=== PATIENT | female | born 1980 | race Caucasian/White ===

== ENCOUNTER → 2017-06-12 | Outpatient (CLI) | payer BC ==
--- NOTE | 2017-06-12 15:36 | NM ---
EXAMINATION TYPE: NM hepatobiliary w EF DATE OF EXAM: 06/12/2017 COMPARISON: NONE HISTORY: 37 year-old female with pain, evaluate for acute cholecystitis TECHNIQUE: After the intravenous administration of 5.38 mCi Tc 99m Mebrofenin hepatobiliary scintigra phy is performed. Immediate images post injection. FINDINGS: There is satisfactory initial accumulation of tracer by the liver. The gallbladder is visualized wit hin 18 minutes. The small bowel activity is noted within 18 minutes. At one hour 8 ounces of oral e nsure plus is given to mimic CCK and gallbladder ejection fraction is calculated at 28%. IMPRESSION: Diminished gallbladder ejection fraction. Differential considerations include chronic cholecystitis a nd biliary dyskinesia. Ultrasound could help in differentiating.
== END ==
LOC: RADNMMAIN 12:47
PROVIDERS: ATTEND Family Medicine
DX: K81.0 Acute cholecystitis (principal)
CPT/HCPCS: 78226; A9537

== ENCOUNTER 2017-07-05 08:31 | Day surgery (SDC) | payer BC ==
[2017-07-05] MEDS ORDERED: LIDOCAINE 1% 20 ML VIAL (10MG/ML) FOR IV START INTRADERMA ONE (08:42)
[2017-07-05 08:51] VITALS: RESP 16
[2017-07-05] MEDS ORDERED: DEXAMETHASONE SOD PHOSPHATE 10 MG/ML 1 ML VIAL IV ONE (09:01)
[2017-07-05] MEDS ORDERED: MIDAZOLAM 2 MG/2 ML VIAL IV PRN (09:01)
[2017-07-05] MEDS ORDERED: SCOPOLAMINE 1.5MG/72HR PATCH TRANSDERM ONE (09:01)
[2017-07-05] MEDS ORDERED: LIDOCAINE 1% 20 ML VIAL (10MG/ML) FOR IV START INTRADERMA PRN (09:01)
[2017-07-05] MEDS: ONDANSETRON 4 MG/2 ML VIAL IVP ONE ×2 (09:07→11:41)
[2017-07-05] MEDS: LACTATED RINGERS 1,000 ML IV SCH ×2 (09:08→13:26)
--- NOTE | 2017-07-05 09:54 | P.GSHP ---
History of Present Illness H&P Date: 07/05/17 Chief Complaint: Right upper quadrant pain 37-year-old female who's had complaints of abdominal pain. Patient had a recent HIDA scan shows abnormal ejection fraction. She presents today for laparoscopic cholecystectomy. - Constitutional Constitutional: Reports as per HPI Medications and Allergies Home Medications Medication Instructions Recorded Confirmed Type Elinest ( Control) 1 tab PO DAILY 07/05/17 History Allergies Allergy/AdvReac Type Severity Reaction Status Date / Time No Known Allergies Allergy Verified 07/05/17 08:38 Surgical - Exam Vital Signs Temp Pulse Resp BP Pulse Ox 97.4 F L 68 16 114/79 99 07/05/17 08:49 07/05/17 08:49 07/05/17 08:49 07/05/17 08:49 07/05/17 08:49 - General well developed, no distress - Eyes PERRL - ENT normal pinna - Neck no masses - Respiratory normal expansion - Cardiovascular Rhythm: regular - Abdomen Abdomen: soft, non tender Assessment and Plan Plan: Chronic cholecystitis. We'll perform laparoscopic cholecystectomy.
[2017-07-05] MEDS ORDERED: HEPARIN SODIUM,PORCINE 5,000 UNIT/ML 1 ML VIAL SQ ONE (10:01)
[2017-07-05] MEDS ORDERED: NEOSTIGMINE 1 MG/ML 10 ML VIAL ONE (10:13)
[2017-07-05] MEDS ORDERED: fentaNYL (PF) 50 MCG/ML 2 ML AMP ONE (10:13)
[2017-07-05] MEDS ORDERED: SUCCINYLCHOLINE CHLORIDE 100 MG/5 ML SYR IV ONE (10:13)
[2017-07-05] MEDS ORDERED: MIDAZOLAM 2 MG/2 ML VIAL ONE (10:13)
[2017-07-05] MEDS ORDERED: LIDOCAINE 1% INJ 10MG/ML (20 ML MDV) ONE (10:13)
[2017-07-05] MEDS ORDERED: SODIUM CHLORIDE 0.9% 50 ML with ceFAZolin 2,000 MG IV ONE ×2 (10:13)
[2017-07-05] MEDS ORDERED: GLYCOPYRROLATE 0.2 MG/ML 2 ML VIAL ONE (10:13)
[2017-07-05] MEDS ORDERED: ROCURONIUM BROMIDE 10 MG/ML 10 ML VIAL IV ONE (10:13)
[2017-07-05] MEDS ORDERED: PROPOFOL 10 MG/ML 20 ML VIAL IV ONE (10:13)
[2017-07-05] MEDS ORDERED: BUPIVACAIN-EPI 0.5%-1:200,000 30 ML VIAL SQ ONE (10:42)
[2017-07-05] MEDS ORDERED: LACTATED RINGERS 1,000 ML IV ONE (10:57)
--- NOTE | 2017-07-05 10:59 | P.OP ---
Date of Procedure: 07/05/17 Preoperative Diagnosis: Cholecystitis Postoperative Diagnosis: Cholecystitis Procedure(s) Performed: Laparoscopic cholecystectomy Implants: Anesthesia: LOAN Surgeon: Neil Beasley Estimated Blood Loss (ml): 5 Pathology: other (Reba Bladder) Condition: stable Disposition: PACU Indications for Procedure: Operative Findings: Description of Procedure: The patient was placed on the operating table. The patient received a general endotracheal tube anesthesia. The patients abdomen was prepped and draped in the usual sterile fashion. Through an infraumbilical stab incision, the fascia of the anterior abdominal wall was grasped with a pair of Kochers and then the Veress needle was placed in the peritoneal cavity. Position of the Veress needle was confirmed with positive drop test. The abdomen was then insufflated. After adequate insufflation, the 10 mm trocar was placed in the peritoneal cavity. Following this the laparoscope was placed in the peritoneal cavity. The patient was placed in the head-up, right side up position and then a 5 mm trocar was placed in the right lateral and right subcostal position under direct visualization. A 8 mm trocar was placed in the epigastric position. The gallbladder was grasped in the fundus and infundibulum. Traction on the gallbladder was placed in the lateral and the cephalad positions. The triangle of Calot was visualized.. The cystic duct was bluntly dissected until the union of the cystic duct and common bile duct was seen. The cystic duct was then divided and sealed with the Harmonic scissors. A PDS Endoloop was then placed throughout the cystic duct stump. The cystic artery divided and sealed with the Harmonic scissors. The gallbladder was then removed from the liver bed using Harmonic scissors. The gallbladder was then extracted through the epigastric port site. Operative field was checked for any bleeding spots and Harmonic scissors was used to coagulate the liver bed. The abdomen was irrigated. The trocars were removed. The skin was closed using interrupted 3-0 Vicryl suture. Dermabond dressing were applied. The patient tolerated the procedure well.
[2017-07-05] MEDS: HYDROmorphone 1 MG/ML 1 ML SYRINGE IVP PRN ×2 (11:10→11:15)
[2017-07-05] MEDS ORDERED: KETOROLAC 30 MG/ML 1 ML VIAL IVP ONE (11:15)
[2017-07-05 11:24] VITALS: TEMP 96.8
[2017-07-05] MEDS ORDERED: diphenhydrAMINE 50 MG/ML 1 ML VIAL IVP ONE (11:30)
[2017-07-05] MEDS ORDERED: METOCLOPRAMIDE 5 MG/ML 2 ML VIAL IVP ONE (11:46)
[2017-07-05] MEDS ORDERED: HYDROcodone/APAP 7.5-325MG 1 EACH TAB PO ONE (14:10)
[2017-07-05 14:36] VITALS: BP 135/85; PULSE 94
== END 2017-07-05 15:40 | disposition home or self-care (01) ==
LOC: OR 08:31
PROVIDERS: ATTEND Surgery
DX: K81.1 Chronic cholecystitis (principal); Z79.3 Long term (current) use of hormonal contraceptives
CPT/HCPCS: 47562; 81025; 88304; J2250; J1200; J1644; J1100; J2710; J2765; J2405; J2001; J3010; J1885; J1170; J0690; J0330; J2704

== ENCOUNTER → 2018-01-10 | Outpatient (CLI) | payer BC ==
--- NOTE | 2018-01-13 11:26 | MM ---
Reason for exam: screening (asymptomatic). Last mammogram was performed 1 year and 7 months ago. History: Taking hormonal contraceptives for 7 years beginning at age 30. Physical Findings: A clinical breast exam by your physician is recommended on an annual basis and results should be correlated with mammographic findings. MG Screening Mammo w CAD Bilateral CC and MLO view(s) were taken. Prior study comparison: June 04, 2016, mammogram. The breast tissue is heterogeneously dense. This may lower the sensitivity of mammography. No suspicious abnormality. No significant changes when compared with prior studies. ASSESSMENT: Negative, BI-RAD 1 RECOMMENDATION: Routine screening mammogram of both breasts in 1 year.
== END | disposition home or self-care (01) ==
LOC: RADMAMWWP 11:03
PROVIDERS: ATTEND Family Medicine
DX: Z12.31 Encounter for screening mammogram for malignant neoplasm of breast (principal)
CPT/HCPCS: 77067

== ENCOUNTER → 2020-09-02 | Outpatient (CLI) | payer BC ==
--- NOTE | 2020-09-05 11:10 | MM ---
Reason for exam: screening (asymptomatic). Last mammogram was performed 2 years and 8 months ago. History: Taking hormonal contraceptives for 7 years beginning at age 30. Physical Findings: A clinical breast exam by your physician is recommended on an annual basis and results should be correlated with mammographic findings. MG Screening Mammo w CAD Bilateral CC and MLO view(s) were taken. Prior study comparison: January 10, 2018, bilateral MG screening mammo w CAD. June 04, 2016, mammogram. The breast tissue is heterogeneously dense. This may lower the sensitivity of mammography. There is no discrete abnormality. No significant changes when compared with prior studies. ASSESSMENT: Negative, BI-RAD 1 RECOMMENDATION: Routine screening mammogram of both breasts in 1 year.
== END | disposition home or self-care (01) ==
LOC: RADMAMWWP 09:52
PROVIDERS: ATTEND Family Medicine
DX: Z12.31 Encounter for screening mammogram for malignant neoplasm of breast (principal)
CPT/HCPCS: 77067

== ENCOUNTER 2021-06-25 12:04 | Emergency (ER) | payer BC ==
[2021-06-25 12:16] VITALS: BP 114/80; PULSE 67; RESP 18; TEMP 98
--- NOTE | 2021-06-25 13:08 | ED ---
General Adult HPI - General Chief complaint: Skin/Abscess/Foreign Body Stated complaint: abscess in mouth Time Seen by Provider: 06/25/21 12:18 Source: patient Mode of arrival: ambulatory Limitations: no limitations - History of Present Illness Initial comments: 41-year-old female presents to the emergency room for a chief complaint of irritation below the lip. Patient states she has had irritation below her lower lip for at least 2 months now. States that she was at her doctor's but forgot to tell them. Patient states that it is not painful but just irritating. She states she has tried honey on it as well as Vaseline and it does not seem to be getting better. Denies any flaking of it. Denies any new face lotion as or products. Denies rashes elsewhere.Patient has no other complaints at this time including shortness of breath, chest pain, abdominal pain, nausea or vomiting, headache, or visual changes. - Related Data Home Medications Medication Instructions Recorded Confirmed Elinest ( Control) 1 tab PO DAILY 07/05/17 Previous Rx's Medication Instructions Recorded Docusate [Colace] 100 mg PO BID #20 capsule 07/05/17 HYDROcodone/APAP 7.5-325MG [Oracle 1 each PO Q4H PRN #60 tab 07/05/17 7.5] Hydrocortisone Cream 1 applic TOPICAL BID 5 Days #10 gm 06/25/21 [Hydrocortisone 1% Cream] Allergies Allergy/AdvReac Type Severity Reaction Status Date / Time No Known Allergies Allergy Verified 06/25/21 12:15 Review of Systems ROS Statement: Those systems with pertinent positive or pertinent negative responses have been documented in the HPI. ROS Other: All systems not noted in ROS Statement are negative. Past Medical History Past Medical History: No Reported History History of Any Multi-Drug Resistant Organisms: None Reported Past Surgical History: Cholecystectomy Past Psychological History: No Psychological Hx Reported Smoking Status: Never smoker Past Alcohol Use History: Occasional Past Drug Use History: None Reported General Exam Limitations: no limitations General appearance: alert, in no apparent distress Head exam: Present: atraumatic Eye exam: Present: normal appearance, PERRL, EOMI. Absent: scleral icterus ENT exam: Present: mucous membranes moist. Absent: normal oropharynx (small erythematous raised skin changes below the lower lip) Neck exam: Present: normal inspection, full ROM. Absent: tenderness Respiratory exam: Present: normal lung sounds bilaterally. Absent: respiratory distress, wheezes Cardiovascular Exam: Present: regular rate, normal rhythm, normal heart sounds Course Vital Signs 06/25/21 12:12 Temperature 98 F Pulse Rate 67 Respiratory 18 Rate Blood Pressure 114/80 O2 Sat by Pulse 95 Oximetry Medical Decision Making - Medical Decision Making We will try a steroid cream on the area. This appears to be a dermatitis. Patient will need to see her primary care doctor and a aeronautical engineer. She will return for any worsening Disposition Clinical Impression: Dermatitis Disposition: HOME SELF-CARE Condition: Good Additional Instructions: Use medication as directed. Follow-up with primary care and dermatology. Return to the emergency room for any worsening symptoms. Prescriptions: Hydrocortisone Cream [Hydrocortisone 1% Cream] 1 applic TOPICAL BID 5 Days #10 gm Is patient prescribed a controlled substance at d/c from ED?: No Referrals: Bernard Hernandez DO [Primary Care Provider] - 1-2 days Everardo Perdue MD [STAFF PHYSICIAN] - 1-2 days Azeem Maciel MD [REFERRING] - 1-2 days Time of Disposition: 13:06
== END 2021-06-25 13:32 | disposition home or self-care (01) ==
LOC: EC 12:04
DX: L30.9 Dermatitis, unspecified (principal)
CPT/HCPCS: 99282

== ENCOUNTER → 2021-08-14 | Outpatient (CLI) | payer BC ==
--- NOTE | 2021-08-15 09:01 | CT ---
EXAMINATION TYPE: CT abdomen pelvis w con DATE OF EXAM: 08/14/2021 COMPARISON: None HISTORY: Acute diverticulitis, Abnormal LFTs. CT DLP: 575.90 mGycm Automated exposure control for dose reduction was used. TECHNIQUE: Helical acquisition of images from the lung bases through the pelvis have been completed. CONTRAST: Performed with Oral Contrast and with IV Contrast, patient injected with 100 mL of Isovue 300. FINDINGS: LUNG BASES: No significant abnormality is appreciated. AORTA: No significant abnormality is appreciated. LIVER/GB: There are masses within the liver, increased density on arterial phase imaging with blendin g of the density of these masses on delayed images to more homogenous liver appearance. Within the me dial segment of the left lobe there is a mass measuring 5.6 cm, central low attenuation is present, s maller lesion in the posterior right lobe towards the dome measures 4.7 cm, the largest lesion, also showing central low attenuation on early imaging measures 8.3 cm at the level of the dome towards the inferior vena cava. Additional focus of low-attenuation is present on axial image 22 posterior aspec t of the right lobe liver which is indeterminate. The liver is enlarged. PANCREAS: No significant abnormality is seen. SPLEEN: No significant abnormality is seen. ADRENALS: No significant abnormality is seen. KIDNEYS: No significant abnormality is seen. REPRODUCTIVE ORGANS: No significant abnormality is seen BOWEL: At the level of the cecum and ascending colon there is some questionable wall thickening lina g the colon, coronal image #24, axial image 58, retained fecal debris is present throughout the distr ibution of the colon. FREE AIR: No Free Air visible. ASCITES: None visible. PELVIC ADENOPATHY: None visualized. RETROPERITONEAL ADENOPATHY: No Retroperitoneal Adenopathy visible. URINARY BLADDER: No significant abnormality is seen. OSSEOUS STRUCTURES: Some sclerotic foci are present in the posterior ilium bilaterally, right techne tium which may represent bone islands but are indeterminate. There is a lucency present in the sulky driver ior aspect of the sacrum, sagittal image 55. IMPRESSION: FINDINGS FELT LIKELY TO REPRESENT FOCAL NODULAR HYPERPLASIA WITHIN THE LIVER. FOLLOW-UP COULD BE PERF ORMED TO ASSESS FOR STABILITY. Indeterminate wall thickening along the right colon, if bowel surveill ance has not been performed then follow-up or consideration for direct visualization may be undertake n. Indeterminate bone lesions, bone scan may be of benefit.
== END | disposition home or self-care (01) ==
LOC: RADCTMAIN 17:28
PROVIDERS: ATTEND Family Medicine
DX: K76.89 Other specified diseases of liver (principal)
CPT/HCPCS: 74177; Q9967

== ENCOUNTER 2021-09-01 07:12 | Day surgery (SDC) | payer BC ==
[2021-08-29 15:51] VITALS: BMI 24.2
[~2021-09-01 07:12] MED LIST: LACTATED RINGERS 1,000 ML IV SCH; LIDOCAINE 1% (10MG/ML) FOR IV START INTRADERMA PRN
[2021-09-01 07:53] VITALS: TEMP 96.9
[2021-09-01] MEDS ORDERED: PROPOFOL 10 MG/ML 20 ML VIAL IV ONE (08:02)
[2021-09-01] MEDS ORDERED: LIDOCAINE 1% INJ 10MG/ML (20 ML MDV) ONE (08:02)
--- NOTE | 2021-09-01 08:05 | P.HPIHPCON ---
History of Present Illness H&P Date: 09/01/21 41-year-old female presents today for colonoscopy. On recent CT of the abdomen and pelvis, she was found to have thickening of the right colon. She denies any blood in her stool. States that she has had recent diarrhea. Previous surgery includes cholecystectomy. Denies any family history of colon cancer. Consent for Procedure: I have explained the operation/procedure to the patient, including the risks, benefits, side effects, alternative therapies (including not receiving the proposed treatment or service), the likelihood of the patient achieving his/her goals, and potential recuperation problems for the procedure/sedation/analgesia, as well as any blood products, if indicated. I also explained to the patient the risks, benefits and side effects of the alternatives, as well as the risks related to not receiving the proposed procedure, care, treatment, or services. - Review of Systems All systems: negative Past Medical History Past Medical History: No Reported History Additional Past Medical History / Comment(s): States thick lining of large intestine from her CAT scan. States having abd. pain with higher enzymes. History of Any Multi-Drug Resistant Organisms: None Reported Past Surgical History: Cholecystectomy Additional Past Surgical History / Comment(s): Leap procedure. Additional Past Anesthesia/Blood Transfusion Reaction / Comment(s): Takes longer to wake up from anesthesia. Past Psychological History: Anxiety Smoking Status: Never smoker Past Alcohol Use History: Occasional Past Drug Use History: None Reported - Past Family History Mother Family Medical History: No Reported History Medications and Allergies Home Medications Medication Instructions Recorded Confirmed Type Elinest ( Control) 1 tab PO DAILY 07/05/17 08/29/21 History Escitalopram [Lexapro] 10 mg PO DAILY 08/29/21 08/29/21 History Omeprazole 20 mg PO DAILY 08/29/21 08/29/21 History Allergies Allergy/AdvReac Type Severity Reaction Status Date / Time No Known Allergies Allergy Verified 08/29/21 15:32 Surgical - Exam Osteopathic Statement: *. No significant issues noted on an osteopathic structural exam other than those noted in the History and Physical/Consult. Vital Signs Temp Pulse Resp BP Pulse Ox 96.9 F L 89 20 140/78 99 09/01/21 07:40 09/01/21 07:40 09/01/21 07:40 09/01/21 07:40 09/01/21 07:40 - General well nourished, no distress - Neck trachea midline - Respiratory normal respiratory effort - Abdomen Abdomen: soft, non tender - Psychiatric oriented to time, oriented to person, oriented to place Assessment and Plan Plan: 41-year-old female presents today secondary to colon thickening found on CT of the abdomen and pelvis. We will perform a colonoscopy. Risks, benefits and alternatives were provided to the patient. Consent was provided. Further recommendations after procedure.
--- NOTE | 2021-09-01 08:25 | P.PCN ---
Date of Procedure: 09/01/21 Preoperative Diagnosis: Thickening of right colon Postoperative Diagnosis: Inflammation of right colon, colitis Procedure(s) Performed: Colonoscopy with biopsy [place]est[place]: [facility] [place]geon: Tamica Luque Pathology: other (Biopsies of right colon and hepatic flexure) Condition: stable Disposition: same day Indications for Procedure: 41-year-old female presented secondary to abnormal finding on CT of the abdomen and pelvis of a thickened right colon. Plan is for colonoscopy for further evaluation. Patient denies blood in stool. She denies any family history of colon cancer. Operative Findings: Inflammatory changes of the right colon Description of Procedure: The patient was brought into the endoscopy suite and placed in left lateral decubitus position and adequate sedation was achieved using conscious sedation. A digital rectal exam was performed and mild internal hemorrhoids were palpated. An endoscope was then placed in the rectum and advanced to the cecum as identified by landmarks including the appendiceal orifice and the ileocecal v alve. The prep was good. The colonoscope was then slowly withdrawn, examining for any mucosal abnormalities. The cecum, ascending, transverse, descending and sigmoid colon were visualized adequately. There were no obvious neoplastic lesions noted throughout the colon. There were no obvious polyps noted throughout the colon. The right colon appeared to be inflamed and somewhat friable. Multiple biopsies were taken of the right colon and hepatic flexure. Remaining mucosa appeared normal. There is no evidence of diverticulosis. Retroflexion was performed in the rectum and internal hemorrhoids were visible. Excess air was removed, the colonoscope withdrawn and the procedure terminated. The patient was then transferred to the recovery unit in stable condition. Repeat colonoscopy should be performed in 8 years.
[2021-09-01] MEDS ORDERED: IV FLUID CONTINUATION 1,000 ML IV ONE (08:28)
[2021-09-01 08:44] VITALS: BP 112/77; PULSE 65; RESP 20
== END 2021-09-01 09:20 | disposition home or self-care (01) ==
LOC: ORWHC2ENDO 07:12
PROVIDERS: ATTEND Surgery
DX: K52.9 Noninfective gastroenteritis and colitis, unspecified (principal)
CPT/HCPCS: 45380; 81025; 88305; J2001; J2704

== ENCOUNTER → 2021-09-05 | Outpatient (CLI) | payer BC ==
--- NOTE | 2021-09-05 15:35 | NM ---
EXAMINATION TYPE: NM bone scan whole body DATE OF EXAM: 09/05/2021 COMPARISON: CT abdomen and pelvis August 14, 2021 HISTORY: Bone lesions. Abnormal CT. Delayed whole-body scanning was performed following the injection of 22.7 mCi Tc 99m MDP. Images acq uired 3 hours post injection. FINDINGS: No suspicious increased focal radiotracer uptake to suggest metastatic disease to the bone or other a bnormality with particular attention to the pelvis at area of recent concern on CT. IMPRESSION: As above.
== END | disposition home or self-care (01) ==
LOC: RADNMMAIN 10:48
PROVIDERS: ATTEND Family Medicine
DX: M89.8X9 Other specified disorders of bone, unspecified site (principal)
CPT/HCPCS: 78306; A9503

== ENCOUNTER → 2021-12-06 | Outpatient (CLI) | payer BC ==
--- NOTE | 2021-12-06 10:55 | MR ---
MR liver with and without contrast HISTORY: Lesion of liver, abnormal LFTs Multiplanar multisequence and postcontrast images obtained through the liver following 7.5 cc Gadavis t IV The large masses seen on patient's CT are noted on MRI, some local mass effect is present, lesions ar e showing signal intensity similar on T1 weighted images to the surrounding liver, slightly increased on T2-weighted sequences. Liver is enlarged. At the central aspect of the large liver lesions there is some spoke-like low signal on T1, increased on T2-weighted sequences. Following contrast administration the masses show early enhancement on arterial phase, more delayed i maging shows the lesions to enhance similar to the surrounding liver similar to delayed phase on CT. There is progressive delayed enhancement of the spoke-like central portion of the masses. The lung bases show no effusions. There is no retroperitoneal adenopathy. Aorta shows normal caliber. Adrenal glands and kidneys are within normal limits. Gallbladder is not seen. Spleen is within emily l limits. Pancreas is within normal limits. There is no ascites. No evident bowel obstruction. Umbili pema hernia contains fat. impression: Findings consistent with focal nodular hyperplasia within the liver as noted on prior CT
== END | disposition home or self-care (01) ==
LOC: RADMRIMAIN 08:29
PROVIDERS: ATTEND Internal Medicine Gastroenterology
DX: K76.9 Liver disease, unspecified (principal)
CPT/HCPCS: 74183; A9585

== ENCOUNTER 2021-12-23 19:49 | Emergency (ER) | payer OTHER, BC ==
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
[2021-12-23] MEDS ORDERED: fentaNYL (PF) 50 MCG/ML 2 ML AMP IVP STA (20:16)
[2021-12-23 20:18] LABS: Basophils % (A) 0 %; Eosinophils # (A) 0.1 k/uL (0-0.7); Eosinophils % (A) 2 %; HCT 42.4 % (34.0-46.0); HGB 14.1 gm/dL (11.4-16.0); Lymphocytes % (A) 43 %; MCH 33.8 pg (25.0-35.0); MCHC 33.3 g/dL (31.0-37.0); MCV 101.5 fL (80.0-100.0); Macrocytosis Slight; Mean Platelet Volume 8.4; Monocytes # (A) 0.2 k/uL (0-1.0); Monocytes % (A) 3 %; Neutrophils # (A) 3.6 k/uL (1.3-7.7); Neutrophils % (A) 51 %; Platelet Count 219 k/uL (150-450); RBC 4.18 m/uL (3.80-5.40)
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
[2021-12-23 20:33] LABS: ALT 26 U/L (4-34); AST 31 U/L (14-36); African American GFR (CKD) >90 (>60 ml/min/1.73 sqM); Albumin 4.4 g/dL (3.5-5.0); Alcohol <10 mg/dL; Alkaline Phosphatase 79 U/L (38-126); Anion Gap 13 mmol/L; Blood Urea Nitrogen 11 mg/dL (7-17); Calcium 9.2 mg/dL (8.4-10.2); Carbon Dioxide 19 mmol/L (22-30); Chloride 103 mmol/L (98-107); Glucose 165 mg/dL (74-99); Non-African American GFR(CKD) >90 (>60 ml/min/1.73 sqM); Potassium 3.5 mmol/L (3.5-5.1); Sodium 135 mmol/L (137-145); Total Bilirubin 0.4 mg/dL (0.2-1.3); Total Protein 7.4 g/dL (6.3-8.2)
[2021-12-23 20:39] LABS: INR 0.9 (<1.2); Prothrombin Time 9.9 sec (9.0-12.0)
[2021-12-23 21:06] LABS: Partial Thromboplastin Time 21.2 sec (22.0-30.0)
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
[2021-12-23] MEDS ORDERED: ONDANSETRON 4 MG ODT STARTER PACK 2 TAB BTL PO STA (23:20)
[2021-12-23] MEDS ORDERED: IBUPROFEN 600 MG STARTER PACK 4 TAB BTL PO STA (23:20)
[2021-12-23] MEDS ORDERED: ACET/COD 300 MG/30 MG STARTER PACK 6 TAB BTL PO STA (23:20)
[2021-12-23] MEDS ORDERED: HYDROmorphone 1 MG/ML 1 ML SYRINGE IVP STA (23:20)
[2021-12-24 01:27] VITALS: BP 126/73; PULSE 82; RESP 16; TEMP 98.2
== END 2021-12-24 | disposition home or self-care (01) ==
LOC: EC 19:49
DX: S20.214A Contusion of middle front wall of thorax, initial encounter (principal); F41.9 Anxiety disorder, unspecified; Z79.899 Other long term (current) drug therapy; V89.2XXA Person injured in unspecified motor-vehicle accident, traffic, initial encounter; Y92.410 Unspecified street and highway as the place of occurrence of the external cause
CPT/HCPCS: 36415; 93005; 86900; 86901; 80053; 84484; 85025; 85610; 85730; 86850; 80320; 72170; 71045; 72125; 70450; 71260; 74177; 99285; 96374; 96375; J3010; J1170; S0119; Q9967

== ENCOUNTER → 2022-11-15 | Outpatient (CLI) | payer BC ==
--- NOTE | 2022-11-18 19:21 | MM ---
Reason for Exam: Screening (asymptomatic). Last mammogram was performed 2 year(s) and 2 month(s) ago. Patient History: Menarche at age 12. First Full-Term at age 25. Hormonal Contraceptives, starting at age 30 for 7 years. Last menstrual period: 11/10/2022 Risk Values: Petra 5 year model risk: 0.7%. NCI Lifetime model risk: 10.9%. Prior Study Comparison: 06/04/2016 Screening Mammogram, Unknown. 01/10/2018 Bilateral Screening Mammogram, [facility]. 09/02/2020 Bilateral Screening Mammogram, [facility]. Tissue Density: The breast tissue is heterogeneously dense. This may lower the sensitivity of mammography. Findings: Analyzed By CAD. There is no suspicious group of microcalcifications or new suspicious mass in either breast. Overall Assessment: Benign, BI-RAD 2 Management: Screening Mammogram of both breasts in 1 year. 1. Patient should continue monthly self breast exams. 2. A clinical breast exam by your physician is recommended on an annual basis. 3. This exam should not preclude additional follow-up of suspicious palpable abnormalities. Electronically signed and approved by: Justin Tam M.D. Radiologist
== END | disposition home or self-care (01) ==
LOC: RADMAMWWP 16:23
PROVIDERS: ATTEND Family Medicine
DX: Z12.31 Encounter for screening mammogram for malignant neoplasm of breast (principal)
CPT/HCPCS: 77063; 77067

== ENCOUNTER → 2023-07-09 | Outpatient (CLI) | payer BC ==
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
== END | disposition home or self-care (01) ==
LOC: RADUSWWP 07:06
PROVIDERS: ATTEND Internal Medicine Gastroenterology
DX: K76.89 Other specified diseases of liver (principal)
CPT/HCPCS: 76705

== ENCOUNTER → 2023-11-21 | Outpatient (CLI) | payer BC ==
--- NOTE | 2023-11-21 20:21 | MM ---
Reason for Exam: Screening (asymptomatic). Last screening mammogram was performed 12 month(s) ago. Patient History: Menarche at age 12. First Full-Term at age 25. Hormonal Contraceptives, starting at age 30 for 7 years. Last menstrual period: 11/18/2023 Risk Values: Petra 5 year model risk: 0.8%. NCI Lifetime model risk: 10.8%. Prior Study Comparison: 01/10/2018 Bilateral Screening Mammogram, [facility]. 09/02/2020 Bilateral Screening Mammogram, [facility]. 11/15/2022 Bilateral MG 3D screening mammo w/cad, [facility]. Tissue Density: The breast tissue is heterogeneously dense. This may lower the sensitivity of mammography. Findings: Analyzed By CAD. There is no suspicious group of microcalcifications or new suspicious mass in either breast. Overall Assessment: Negative, BI-RAD 1 Management: Screening Mammogram of both breasts in 1 year. . Patient should continue monthly self-breast exams. A clinical breast exam by your physician is recommended on an annual basis. This exam should not preclude additional follow-up of suspicious palpable abnormalities. Note on Petra scores and lifetime risk: 1. A Petra score greater than 3% is considered moderate risk. If this is the case, consider specialist referral to assess eligibility for a risk reducing agent. 2. If overall lifetime risk for the development of breast cancer is 20% or higher, the patient may qualify for future screening with alternating mammogram and breast MRI. Electronically signed and approved by: Justin Tam M.D. Radiologist
== END | disposition home or self-care (01) ==
LOC: RADMAMWWP 07:02
PROVIDERS: ATTEND Family Medicine
DX: Z12.31 Encounter for screening mammogram for malignant neoplasm of breast (principal)
CPT/HCPCS: 77063; 77067

== ENCOUNTER → 2025-02-05 | Outpatient (CLI) | payer BC ==
--- NOTE | 2025-02-05 07:39 | MM ---
Reason for Exam: Screening (asymptomatic). Last mammogram was performed 1 year(s) and 3 month(s) ago. Patient History: Menarche at age 12. First Full-Term at age 25. Hormonal Contraceptives, starting at age 30 for 7 years. Last menstrual period: 01/30/2025 Risk Values: Petra 5 year model risk: 0.9%. NCI Lifetime model risk: 10.7%. Prior Study Comparison: 09/02/2020 Bilateral Screening Mammogram, [facility]. 11/15/2022 Bilateral MG 3D screening mammo w/cad, [facility]. 11/21/2023 Bilateral MG 3D screening mammo w/cad, [facility]. Tissue Density: The breasts are heterogeneously dense, which may obscure small masses. Findings: Analyzed By CAD. Areas of bilateral asymmetric densities are unchanged. There is no suspicious group of microcalcifications or new suspicious mass in either breast. Overall Assessment: Benign, BI-RAD 2 Management: Screening Mammogram of both breasts in 1 year. Patient should continue monthly self-breast exams. A clinical breast exam by your physician is recommended on an annual basis. This exam should not preclude additional follow-up of suspicious palpable abnormalities. Note on Petra scores and lifetime risk: 1. A Petra score greater than 3% is considered moderate risk. If this is the case, consider specialist referral to assess eligibility for a risk reducing agent. 2. If overall lifetime risk for the development of breast cancer is 20% or higher, the patient may qualify for future screening with alternating mammogram and breast MRI. [facility], , 02/05/2025 7:36 AM. Electronically signed and approved by: Justin Tam M.D. Radiologist
== END | disposition home or self-care (01) ==
LOC: RADMAMWWP 07:07
PROVIDERS: ATTEND Family Medicine
DX: Z12.31 Encounter for screening mammogram for malignant neoplasm of breast (principal); R92.333 Mammographic heterogeneous density, bilateral breasts; Z92.0 Personal history of contraception
CPT/HCPCS: 77063; 77067